=== PATIENT | female | born 1995 | race American Indian/Alaskan Native ===

== ENCOUNTER 2021-04-09 08:48 | Day surgery (SDC) | payer BC ==
[2021-04-03 12:13] LABS: Hematocrit 34.9 % (30.3-42.9); Hemoglobin 11.8 gm/dl (10.1-14.3); Mean Corpuscular HGB Conc 34 % (30-34); Mean Corpuscular Volume 87 fl (79-97); Platelet Count 268 K/mm3 (140-440); Red Blood Count 4.02 M/mm3 (3.65-5.03); Red Cell Distribution Width 15.5 % (13.2-15.2)
--- NOTE | 2021-04-08 18:05 | History and Physical Report ---
History of Present Illness Date of examination: 04/03/21 Chief complaint: Retained arm of Paragard History of present illness: Valeria is a 25 year-old female who presents for hysteroscopic removal for arm of Paragard IUD. She presented to the office for Paravard removal. After the IUD was removal it was immediately noted that one arm was not attached to the device. Gentle probe of the os was unsuccessful. She returned to the office for attempted hysteroscopic removal however due limiitation of equipement and the inability to accurate manage fluid the decision was made to abort the procedure after several attempts and to try again in the OR suite. 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 Operations: Breast Reduction: Abnormal PAP: negative Infection History HIV Risk Eval: no Hx of STD: None Active Medications: None Current Allergies (reviewed today): No known allergies Past Medical History: Reviewed history from 05/02/2015 and no changes required: Negative Past Medical History Past Surgical History: Reviewed history from 05/02/2015 and no changes required: Breast Reduction: Family History Summary: Reviewed history Last on 12/21/2020 and no changes required:04/08/2021 Mother - Has Family History of Spontaneous DVT-PE - on OCP's Negative workup - Entered On: 12/21/2020 Other Family Member - Has No Family History of Uterine Cancer - Entered On: 03/13/2019 Other Family Member - Has No Family History of Small Bowel Cancer - Entered On: 03/13/2019 Other Family Member - Has No Family History of Stomach Cancer - Entered On: 03/13/2019 Other Family Member - Has No Family History of Pancreatic Cancer - Entered On: 03/13/2019 Other Family Member - Has No Family History of Kidney/Urinary Tract Cancer - Entered On: 03/13/2019 Other Family Member - Has No Family History of Spontaneous DVT-PE - Entered On: 03/13/2019 Other Family Member - Has No Family History of Brain Cancer - Entered On: 03/13/2019 Other Family Member - Has No Family History of Biliary Tract Cancer - Entered On: 03/13/2019 MGM - Has Family History of Ovarian Cancer - Entered On: 03/13/2019 Other Family Member - Has No Family History of DVT/PE on OCP - Entered On: 2014 Other Family Member - Has No Family History of Colon Cancer - Entered On: 05/02/2015 MGM - Has Family History Breast Cancer - thai, and great great, great auntsx2 - Entered On: 05/02/2015 General Comments - FH: mother CVA on OCP's, negative workup Social History: Reviewed history from 12/21/2020 and no changes required: Patient is single Smoking History: Patient has never smoked. Risk Factors: Smoked Tobacco Use: Never smoker Smokeless Tobacco Use: Never Passive smoke exposure: no Drug use: no HIV high-risk behavior: no Caffeine use: 0 drinks per day Alcohol use: no Exercise: yes Times per week: 5 Seatbelt use: 100 % PAP Smear History: Date of Last PAP Smear: 12/21/2020 Previous Tobacco Use: Signed On - 01/23/2021 Smoked Tobacco Use: Never smoker Smokeless Tobacco Use: Never Drug use: yes Substance: marijuana HIV high-risk behavior: no Previous Alcohol Use: Signed On - 01/23/2021 Alcohol use: no Exercise: yes Times per week: 5 Type of Exercise: cardio, weight lifting Seatbelt use: 100 % PAP Smear History: Date of Last PAP Smear: 12/21/2020 Physical Exam Appearance: well developed, well nourished, no acute distress Other Exams Lungs: no rales, rhonchi, or wheezes Heart: S1, S2, no murmur, rub, or gallop Genitourinary Exam Uterus: deferred for EUA Impression & Recommendations: Problem # 1: Foreign body in uterus, sequela (ICD-908.5) ([id number]) Consent reviewed and signed . Possible laparoscopy or laparotomy explained to patient. The risks and alternatives for this surgery were reviewed with the patient. She was informed ofrisks, including but not limited to, possible bleeding, uterine infection, injury to bowel, bladder, ureters or other adjacent organs. The patient was instructed/informed the following: The normal length of hospital stay for this procedure. Nothing to eat or drink after midnight the evening prior to surgery. Pre-op instruction sheets given. Wound care instructions given. Infection precautions reviewed, patient to call for any signs or symptoms of infection. The usual discomforts associated with this procedure were detailed. Proper use of pain medicines was reviewed. Patient was given ample opportunity to have all her questions answered before signing informed consent. Medications and Allergies Allergies Allergy/AdvReac Type Severity Reaction Status Date / Time peanut Allergy hives, Verified 04/01/21 18:08 vomiting, throat swelling Home Medications Medication Instructions Recorded Confirmed Last Taken Type No Known Home Medications [No 04/01/21 04/01/21 Unknown History Reported Home Medications] Active Meds: Active Medications Cefazolin Sodium 3 gm/ Sodium (Chloride) 100 mls @ 100 mls/30 min IV PREOP NR; Protocol Exam Vital Signs Temp Pulse Resp BP Pulse Ox 99 F 67 20 149/86 100 04/03/21 11:50 04/03/21 11:50 04/03/21 11:50 04/03/21 11:50 04/03/21 11:50 Results - Labs 04/03/21 11:55
[~2021-04-09 08:48] MED LIST: SILVER NITRATE APPLICATOR 1 EA TP ONE
[2021-04-09] MEDS ORDERED: MIDAZOLAM 2 MG/2 ML INJ IV NR (09:30)
[2021-04-09] MEDS ORDERED: LACTATED RINGERS 1,000 ML IV SCH (09:30)
[2021-04-09] MEDS ORDERED: LACTATED RINGERS 1,000 ML ONE (09:33)
[2021-04-09] MEDS ORDERED: ONDANSETRON 4 MG/2 ML INJ IV PRN (09:49)
[2021-04-09] MEDS ORDERED: HYDROmorphone 1 MG/1 ML INJ IV PRN ×2 (09:49)
--- NOTE | 2021-04-09 09:50 | Anesthesia Consultation ---
Anesthesia Consult and Med Hx Date of service: 04/09/21 - Airway Anesthetic Teeth Evaluation: Good ROM Head & Neck: Adequate Mental/Hyoid Distance: Adequate Mallampati Class: Class II Intubation Access Assessment: Good - Pre-Operative Health Status ASA Pre-Surgery Classification: ASA2 Proposed Anesthetic Plan: General - Pulmonary Hx Asthma: Yes (As a child-resolved) - Cardiovascular System Hx Heart Murmur: Yes (Resolved) - Central Nervous System Hx Psychiatric Problems: No - Other Systems Hx Alcohol Use: Yes (Occas) Hx Substance Use: Yes (Occas Marijuana) Hx Cancer: No Hx Obesity: Yes
--- NOTE | 2021-04-09 09:50 | Anesthesia Day of Surgery ---
Anesthesia Day of Surgery - Day of Surgery Patient Examined: Yes Patient H&P Reviewed: Yes Patient is NPO: Yes
[2021-04-09] MEDS ORDERED: propofoL 200 MG/20 ML VIAL IV ONE (09:58)
[2021-04-09] MEDS ORDERED: ROCURONIUM 50 MG/5 ML INJ IV ONE (09:58)
[2021-04-09] MEDS ORDERED: fentaNYL 100 MCG/2 ML INJ ONE (09:58)
[2021-04-09] MEDS ORDERED: LIDOCAINE MPF (2%) 20 MG/1 ML VIAL 5 ML ONE (09:58)
[2021-04-09] MEDS ORDERED: ONDANSETRON 4 MG/2 ML INJ ONE (09:59)
[2021-04-09] MEDS ORDERED: dexAMETHasone 20 MG/5 ML VIAL ONE (10:00)
[2021-04-09] MEDS ORDERED: HYDROmorphone 1 MG/1 ML INJ ONE ×2 (10:29→11:07)
[2021-04-09] MEDS ORDERED: KETOROLAC 30 MG/1 ML INJ ONE (10:34)
[2021-04-09] MEDS ORDERED: SODIUM CHLORIDE 0.9% IRRIG SOLN 2000 ML IR ONE (11:12)
--- NOTE | 2021-04-09 12:08 | Post Operative Note ---
Pre-op diagnosis: Retained Paragard arm, endometrial polyps Post-op diagnosis: other (No IUD arm or foreign tissue noted) Findings: No IUD arm or foreign tissue noted Procedure: Diagnostic hysteroscopy with Dilation and curettage Anesthesia: KENNA Surgeon: KATHY YAO Estimated blood loss: minimal Pathology: list (Endometrial tissue) Specimen disposition: to lab Condition: stable Disposition: PACU
--- NOTE | 2021-04-09 12:15 | Discharge Summary ---
Providers - Providers Date of discharge: 04/09/21 Attending physician: KATHY YAO Primary care physician: REFRIGERATOR GLAZIER Hospitalization Condition: Good Procedures: Hysteoscopy D&C Hospital course: Normal Disposition: DC-01 TO HOME OR SELFCARE Final Discharge Diagnosis (Prints w/discharge instructions): Hysteoscopy D&C Core Measure Documentation - Palliative Care Palliative Care/ Comfort Measures: Not Applicable - Core Measures Any of the following diagnoses?: none Exam - Constitutional Vitals: Temp Pulse Resp BP Pulse Ox 98.2 F 58 L 19 127/78 95 04/09/21 11:52 04/09/21 12:00 04/09/21 12:00 04/09/21 12:00 04/09/21 12:00 General appearance: Present: no acute distress - Respiratory Respiratory effort: normal - Cardiovascular Rhythm: regular - Psychiatric Psychiatric: appropriate mood/affect, intact judgment & insight Plan Activity: other (No sex, No driving for 24hours, ambulate on your property ~1mile a day) Weight Bearing Status: Full Weight Bearing Diet: regular (Drink ~100oz water a day. Eat small meals frequently, avoid spicy, salty high fat, high carbohydrate foods) Care Plan Goals: Safe recovery Follow up with: PRIMARY CARE, [Primary Care Provider] - 7 Days KATHY YAO MD [Staff Physician] - (as scheduled) Prescriptions: Ibuprofen [Motrin 800 MG tab] 800 mg PO TID PRN #30 tablet PRN Reason: Pain oxyCODONE /ACETAMINOPHEN [Percocet 5/325 mg] 1 - 2 tab PO Q6HR PRN #7 tablet PRN Reason: Pain
[2021-04-09 12:51] VITALS: BP 125/70
--- NOTE | 2021-04-09 17:27 | Operative Report ---
Operative Report Operative Report: Date: 04/09/2021 PREOPERATIVE DIAGNOSES: 1. Retained arm of ParaGard intrauterine device 2. Endometrial polyp POSTOPERATIVE DIAGNOSES: 1. Endometrial polyp 2. No foreign objects noted PROCEDURE PERFORMED: 1. Hysteroscopy. 2. Dilation and curettage (D&C) ANESTHESIA: General ESTIMATED BLOOD LOSS: Less than minimal cc. INDICATIONS: This is a 25-year-old -[place] female that presents with retained arm of the ParaGard device and endometrial polyp. PROCEDURE: The patient was seen in the preoperative suite. Expected procedure and postoperative course discussed with her. She was taken to the operative suite where general endotracheal anesthesia was performed. She was placed in a dorsal lithotomy position. . A bimanual exam was done, the uterus was unable to be palpated due to body habitus. She was prepped and draped in the normal sterile fashion. Timeout was performed. Her bladder was drained with the red Castle catheter which produced approximately 50 cc of clear yellow urine. The cervix and vagina were grossly normal with no obvious masses or deformities. A bivalve operative speculum was placed in the vagina and the anterior lip of the cervix was grasped with the single-tooth tenaculum. The uterus was sounded to ~8 cm. The cervix was progressively dilated to allow t he diagnostic hysteroscope. However the endometrial cavity was difficult to clearly visualize therefore the MyoSure hysteroscope was introduced. Under direct visualization, the ostia were within normal limits. The endometrial lining appeared thickened, however, there was no obvious evidence of malignancy. The hysteroscope was removed and a small sharp curette was placed intrauterine very carefully using anterior wall for guidance. Endometrial curettings were obtained. The endometrial sampling was placed on Telfa pad and sent to Pathology for evaluation, permanent. The hysteroscope was introduced again, no evidence of perforation was noted. The entire cavity as well as anterior and posterior leung and internal os and cervical canal were thoroughly examined and visualized no evidence of any foreign object or ParaGard arm was noted. At this point procedure was ended. The single-tooth tenaculum and speculum were removed. The cervix was found to be hemostatic. Counts were correct. Patient was taken to the PACU stable. Distention fluid: Normal saline Deficit: 100 mL
--- NOTE | 2021-04-09 19:40 | Post Anesthesia Evaluation ---
- Post Anesthesia Evaluation Patient Participated: Yes Airway Patent: Yes Stable Respiratory Function: Yes Nausea/Vomiting: No Temp > 96.8F: Yes Pain Manageable: Yes Adequeate Hydration: Yes Anesthesia Complications: No Block Receding Appropriately: Not Applicable Patient on Ventilator: No
== END 2021-04-09 13:00 | disposition home or self-care (01) ==
LOC: OR 08:48
PROVIDERS: ATTEND Obstetrics & Gynecology
DX: N84.0 Polyp of corpus uteri (principal); T83.89XA Other specified complication of genitourinary prosthetic devices, implants and grafts, initial encounter; Z20.822 Contact with and (suspected) exposure to COVID-19; J45.909 Unspecified asthma, uncomplicated; K21.9 Gastro-esophageal reflux disease without esophagitis; E66.9 Obesity, unspecified; Z98.890 Other specified postprocedural states; Z79.899 Other long term (current) drug therapy; Z68.42 Body mass index [BMI] 45.0-49.9, adult; Z91.010 Allergy to peanuts; Z72.89 Other problems related to lifestyle; Y83.8 Other surgical procedures as the cause of abnormal reaction of the patient, or of later complication, without mention of misadventure at the time of the procedure; Y92.89 Other specified places as the place of occurrence of the external cause
CPT/HCPCS: 36415; 58558; 85027; 88305; A4217; J0690; J1100; J1170; J1885; J2250; J2405; J2704; J3010; J7120; U0003